=== PATIENT | female | born 1965 | race Caucasian/White ===

== ENCOUNTER → 2019-08-24 17:40 | Outpatient (CLI) | payer BC, SELFPAY ==
--- NOTE | ~2019-08-24 | MM_ITS ---
EXAMINATION: MM screening [facility] BI w yassine HISTORY: Screening mammogram TECHNIQUE: Craniocaudal and mediolateral oblique 3-D tomosynthesis images were obtained and synthetic 2-D images were generated. CAD analysis was submitted and interpreted. COMPARISON: No prior mammogram is available for comparison at this institution. BREAST PARENCHYMAL COMPOSITION: There are scattered areas of fibroglandular density. FINDINGS: Degenerative occasional bilateral low-density circumscribed masses, likely due to benign in tramammary lymph nodes. There is no evidence of suspicious mass, calcification, or architectural dist ortion to suggest malignancy in either breast. There has been no suspicious interval change. IMPRESSION: 1. No mammographic evidence of malignancy. 2. Recommend routine screening mammography in one year. BI-RADS Category 2: Benign finding(s). Reviewed, dictated and finalized at location A.
== END ==
PROVIDERS: PCP Physician Assistant; Visit Provider Physician Assistant
DX: Z12.31 Encounter for screening mammogram for malignant neoplasm of breast (principal)
CPT/HCPCS: 77063; 77067

== ENCOUNTER → 2020-09-28 17:18 | Outpatient (CLI) | payer BC, SELFPAY ==
--- NOTE | ~2020-09-28 | MM_ITS ---
EXAMINATION: MM screening [facility] BI w yassine HISTORY: Screening TECHNIQUE: Craniocaudal and mediolateral oblique 3-D tomosynthesis images were obtained and synthetic 2-D images were generated. CAD analysis was submitted and interpreted. COMPARISON: Comparison to multiple prior studies sequentially, with oldest reviewed study dated 12/2010. BREAST PARENCHYMAL COMPOSITION: There are scattered areas of fibroglandular density. FINDINGS: There is no evidence of suspicious mass, calcification, or architectural distortion to sugg est malignancy in either breast. There has been no suspicious interval change. IMPRESSION: 1. No mammographic evidence of malignancy. 2. Recommend routine screening mammography in one year. BI-RADS Category 1: Negative Reviewed, dictated and finalized at location A.
== END ==
PROVIDERS: Visit Provider Physician Assistant
DX: Z12.31 Encounter for screening mammogram for malignant neoplasm of breast (principal)
CPT/HCPCS: 77063; 77067

== ENCOUNTER → 2021-10-11 16:11 | Outpatient (CLI) | payer BC, SELFPAY ==
--- NOTE | ~2021-10-11 | XR_ITS ---
EXAMINATION: XR knee RT 2V DATE: 10/11/2021 16:30 INDICATION: Right knee pain TECHNIQUE: Two views of the right knee were obtained. COMPARISON: None. FINDINGS: Alignment is normal. No fracture or osteochondral lesion. There is tricompartmental osteoar thritis characterized by moderate narrowing in the medial and patellofemoral compartments and margina l osteophytes. No joint effusion/synovitis. Soft tissues are unremarkable. IMPRESSION: 1. No acute osseous abnormality. Reviewed, dictated and finalized at location F.
== END ==
PROVIDERS: PCP Physician Assistant; Visit Provider Physician Assistant
DX: M25.561 Pain in right knee (principal)
CPT/HCPCS: 73560

== ENCOUNTER → 2021-12-08 16:07 | Outpatient (CLI) | payer BC, SELFPAY ==
--- NOTE | ~2021-12-08 | MM_ITS ---
EXAMINATION: MM screening [facility] BI w yassine HISTORY: Screening mammogram TECHNIQUE: Craniocaudal and mediolateral oblique 3-D tomosynthesis images were obtained and synthetic 2-D images were generated. CAD analysis was submitted and interpreted. COMPARISON: 09/28/2020, 08/24/2019, 07/15/2018 bilateral screening mammogram examinations BREAST PARENCHYMAL COMPOSITION: There are scattered areas of fibroglandular density. FINDINGS: Scattered bilateral stable benign-appearing low-density circumscribed opacities, mostly lik ethan benign intramammary lymph nodes and/or cysts. There is no evidence of suspicious mass, calcificat ion, or architectural distortion to suggest malignancy in either breast. There has been no suspicious interval change. IMPRESSION: 1. No mammographic evidence of malignancy. 2. Recommend routine screening mammography in one year. BI-RADS Category 2: Benign finding(s). Reviewed, dictated and finalized at location A.
== END ==
PROVIDERS: PCP Family Medicine; Visit Provider Family Medicine
DX: Z12.31 Encounter for screening mammogram for malignant neoplasm of breast (principal)
CPT/HCPCS: 77063; 77067

== ENCOUNTER 2022-12-06 13:58 | Outpatient (CLI) | payer BC, SELFPAY ==
--- NOTE | ~2022-12-06 | US_ITS ---
EXAMINATION: US venous doppler LE RT DATE: 12/06/2022 15:14 INDICATION: Right lower limb swelling. Deep venous thrombosis. TECHNIQUE: Grayscale ultrasound images without and with compression and Doppler ultrasound images of the right lower extremity veins were obtained. COMPARISON: None. FINDINGS: The visualized portions of right common femoral vein, profunda (deep) femoral vein, femoral vein, pop liteal vein, peroneal trunk, posterior tibial veins, peroneal veins, gastrocnemius vein and greater s aphenous vein outflow are patent. IMPRESSION: 1. No deep venous thrombosis in the right lower limb. Reviewed, dictated and finalized at location A.
--- NOTE | ~2022-12-06 | US_ITS ---
EXAMINATION: US venous doppler UE RT DATE: 12/06/2022 15:14 INDICATION: Acute embolism and thrombosis of the deep veins TECHNIQUE: Grayscale images without and with compression and Doppler images of the bilateral upper ex tremity veins were obtained. COMPARISON: None. FINDINGS: The right internal jugular vein, subclavian vein, axillary vein, brachial vein, basilic vein, cephali c vein, radial vein, and ulnar vein are patent. IMPRESSION: 1. Patent right upper extremity veins. No evidence of venous thrombosis. Reviewed, dictated and finalized at location A.
== END 2022-12-06 13:59 | disposition home or self-care (01) ==
PROVIDERS: PCP Family Medicine; Visit Provider Physician Assistant
DX: I82.409 Acute embolism and thrombosis of unspecified deep veins of unspecified lower extremity (principal); I82.629 Acute embolism and thrombosis of deep veins of unspecified upper extremity
CPT/HCPCS: 93971

== ENCOUNTER 2023-05-23 13:26 | Observation (INO) | payer OTHER, SELFPAY ==
--- NOTE | ~2023-05-23 | XR_ITS ---
EXAMINATION: XR chest 1V DATE: 05/23/2023 17:32 INDICATION: Confusion. Recent COVID-19. TECHNIQUE: A single frontal view of the chest was obtained. COMPARISON: Chest single view 04/02/2016 FINDINGS: There is no pneumonia, pleural effusion, or pneumothorax. The heart size is normal. IMPRESSION: 1. No acute cardiopulmonary disease. Reviewed, dictated and finalized at location E. [employer] TRI[employer] DATA COORDINATOR
--- NOTE | ~2023-05-23 | MR_ITS ---
EXAMINATION: MR brain/brain stem wo/w con DATE: 05/24/2023 09:23 INDICATION: Worsening right lower extremity weakness. TECHNIQUE: Magnetic resonance imaging (MRI) of the brain and brainstem was performed without and with 16 mL MultiHance intravenous contrast. COMPARISON: Head CT 05/23/2023 FINDINGS: There is no acute ischemic infarct. There is chronic encephalomalacia with old blood produc ts involving the left basal ganglia, left internal capsule, left thalamus, and left subinsular white matter. There is chronic Wallerian degeneration in the left corticospinal tracts in the brainstem. Th ere are scattered areas of nonspecific increased T2-weighted signal intensity in the cerebral white m atter. There is no abnormal mass lesion. There is mild ex vacuo dilatation of left lateral ventricle. The paranasal sinuses are clear. The orbits are normal. The mastoid air cells are normal. IMPRESSION: 1. Chronic encephalomalacia with old blood products involving the left basal ganglia, left internal c apsule, left thalamus, and left subinsular white matter. 2. Moderate nonspecific cerebral white matter disease, which likely represents chronic small vessel i schemic disease. Reviewed, dictated and finalized at location A. D STACKER IMPRESSION: 1. Chronic encephalomalacia with old blood products involving the left basal ga nglia, left internal capsule, left thalamus, and left subinsular white matter. 2. Moderate nonspecific cerebral white matter disease, which likely represents chronic small vessel ischemic disease.
--- NOTE | ~2023-05-23 | CT_ITS ---
CT ANGIOGRAM NECK AND HEAD History: Confusion. Technique: Axial noncontrast imaging of the brain was performed. Serial spiral axial images through t he head and neck were then obtained during arterial phase IV injection of 100 cc of Omnipaque 350. 3- D postprocessing and MIP images were then reconstructed on the remote workstation. Dose reduction adia hnique was used on this scan by utilizing automated exposure control and iterative reconstruction adia hnique. The dose-length product (DLP) was 1626.25 mGy-cm. CTA neck findings: Bilateral vertebral arteries are patent. Bowel, carotid, internal carotid, and ex ternal carotid arteries are patent. No large vessel occlusion. No stenosis or aneurysm. The proximal right internal carotid artery demonstrates 0% stenosis relative to the normal distal artery lumen omar meter. The proximal left internal carotid artery demonstrates 0% stenosis relative to the normal dist al artery lumen diameter. CTA head findings: Distal vertebral arteries, basilar artery, and posterior cerebral arteries are pat ent. Distal internal carotid arteries, middle cerebral arteries, and anterior cerebral arteries are p atent. No large vessel occlusion. No stenosis or aneurysm. Axial noncontrast imaging of the brain demonstrates probable chronic infarct in the left periventricu lar white matter in left basal ganglia. No acute infarct, intracranial hemorrhage, or mass lesion joyce ntified. Ventricles and subarachnoid spaces are minimally prominent. There are mild chronic microvasc ular ischemic changes with associated hypodensity in the periventricular white matter. No midline joanne ft. Paranasal sinuses and mastoid air cells are clear. Impression: No vascular abnormality evident. Chronic infarct in the left periventricular white matter/left basal ganglia. Mild generalized atrophy and mild chronic microvascular ischemic changes. Reviewed, dictated and finalized at location . ER PRODUCTION LINE GAS Impression: No vascular abnormality evident. Chronic infarct in the left periventricular white matter/left basal ganglia. Mild generalized atrophy and mild chronic microvascular ischemic changes.
[2023-05-23 13:29] VITALS: BP 132/72; PULSE 64; RESP 18; TEMP 36.6; O2SAT 96
[2023-05-23 16:17] VITALS: BP 127/69; PULSE 52; RESP 18; O2SAT 99
--- NOTE | 2023-05-23 17:08 | ECG_ITS ---
Measurements Intervals [place] Rate: 53 P: 39 CT: 153 QRS: 48 QRSD: 78 T: 48 QT: 433 QTc: 410 Interpretive Statements SINUS BRADYCARDIA LOW QRS VOLTAGE IN PRECORDIAL LEADS [QRS DEFLECTION < 1.0 mV IN CHEST LEADS] NO PREVIOUS ECG AVAILABLE FOR COMPARISON Electronically Signed On 05-23-2023 19:20:18 [employer] TE[employer] by Ana Kendall M.D.
--- NOTE | 2023-05-23 17:10 | ED.GENADULT ---
HPI - General Adult General Chief complaint: Neuro Symptoms/Deficit <Tevin Palafox MD - Last Filed: 05/24/23 18:32> Stated complaint: slurred speech, swollen r light leg <Tevin Palafox MD - Last Filed: 05/24/23 18:32> Time Seen by Provider: 05/23/23 17:06 <Tevin Palafox MD - Last Filed: 05/24/23 18:32> History of Present Illness HPI narrative: 57-year-old female presenting to the emergency department for evaluation of increased weakness of her right lower extremity. Patient had a stroke approximately 6 months ago and was treated at [place]. Patient does have residual right-sided deficit From that stroke 6 months ago. Patient does have some language deficit which her son states is unchanged from her new baseline. Patient has significant right arm weakness which she states is unchanged. Patient does feel that her right lower extremity is weaker than normal. Son states that the patient's range of motion is not far from her normal baseline. Patient did have COVID approximately 2 weeks ago. Patient denies any other illnesses or fevers. Patient denies any falls or injury. <Tevin Palafox MD - Last Filed: 05/24/23 18:32> 57-year-old female presenting emergency department for evaluation of increased weakness of her right lower extremity. Patient had a stroke approximately 6 months ago and was treated at [place]. Patient does have residual right-sided deficit From that stroke 6 months ago. Patient does have some language deficit which her son states is unchanged from her new baseline. Patient has significant right arm weakness which she states is unchanged. Patient does feel that her right lower extremity is weaker than normal. Son states that the patient's range of motion is not far from her normal baseline. Patient did have COVID approximately 2 weeks ago. Patient denies any other illnesses or fevers. Patient denies any falls or injury. <Argentina Chavis PA-C - Last Filed: 05/23/23 23:27> Related Data Home medications: Home Medications Medication Instructions Recorded Confirmed sennosides 8.6 mg-docusate sodium 1 tab-cap PO QHS PRN Constipation 11/08/22 05/24/23 50 mg tablet (Stimulant Laxative Plus) acetaminophen 650 mg tablet 650 mg PO Q6H PRN Pain (Scale 05/24/23 05/24/23 Score 1-3) baclofen 10 mg tablet 10 mg PO TID 05/24/23 05/24/23 baclofen 5 mg tablet 5 mg PO TID 05/24/23 05/24/23 melatonin 3 mg PO HS PRN Insomnia 05/24/23 05/24/23 <Tevin Palafox MD - Last Filed: 05/24/23 18:32> Allergies/adverse reactions: Allergies Allergy/AdvReac Type Severity Reaction Status Date / Time No Known Allergies Allergy Unverified 11/30/22 10:49 <Tevin Palafox MD - Last Filed: 05/24/23 18:32> Review of Systems Review of Systems: All systems reviewed & are unremarkable except as noted in HPI and below <Tevin Palafox MD - Last Filed: 05/24/23 18:32> PMFSH Past Medical History Medical History: Medical History Essential (primary) hypertension Hemiparesis affecting right side as late effect of cerebrovascular accident Major depressive disorder, single episode, moderate <Tevin Palafox MD - Last Filed: 05/24/23 18:32> Surgical History Surgical History: Surgical History History of cholecystectomy 1992 History of partial hysterectomy 2007 <Tevin Palafox MD - Last Filed: 05/24/23 18:32> Family History Family History: Family History Mother Brain aneurysm COPD (chronic obstructive pulmonary disease) Father Liver transplant recipient <Tevin Palafox MD - Last Filed: 05/24/23 18:32> Social History Social History: Social History (Updated 11/08/22 @ 10:28 by Michaela Sellers MA) Smoking status: Former smoker Alcohol intake: never Substance us
[2023-05-23 17:42] LABS: Basophils Percent Auto 0.4 % (0.2-1.2); Eosinophils Absolute Auto 0.2 K/mm3 (0-0.3); Eosinophils Percent Auto 2.2 % (0-4.4); Hematocrit 41.9 % (37.0-47.0); Hemoglobin 13.5 g/dL (12.0-15.0); Immature Granulocyte Absolute 0.03 K/mm3 (0.00-0.031); Immature Granulocyte Percent A 0.4 % (0-0.5); Lymphocytes Absolute Auto 1.72 K/mm3 (0.9-3.2); Lymphocytes Percent Auto 24.1 % (18.3-44.2); Mean Corpuscular HGB Conc 32.2 g/dl (32-36); Mean Corpuscular Hemoglobin 29.2 pg (26-34); Mean Corpuscular Volume 90.5 fl (80-100); Mean Platelet Volume 11.2 fl (7.4-10.4); Monocytes Absolute Auto 0.5 K/mm3 (0.1-0.6); Monocytes Percent Auto 7.4 % (2.6-8.5); Neutrophils Absolute Auto 4.7 K/mm3 (1.3-6.7); Neutrophils Percent Auto 65.5 % (45.5-73.1); Platelet Count Result 224 k/mm3 (150-375); Red Blood Count 4.63 M/mm3 (4.2-5.4); White Blood Count 7.1 K/mm3 (4.5-10.0)
[2023-05-23 17:45] LABS: Alanine Aminotransferase 18 U/L (6-35); Albumin Level 4.3 g/dL (3.5-5.1); Alkaline Phosphatase 143 U/L (38-126); Anion Gap 11 mmol/L (8-16); Aspartate Amino Transferase 24 U/L (14-36); Bilirubin,Total 0.6 mg/dL (0.2-1.3); Blood Urea Nitrogen 20 mg/dL (7-17); Calcium 9.3 mg/dL (8.4-10.2); Carbon Dioxide 19 mmol/L (22-30); Chloride 109 mmol/L (98-107); Estimated CRCL calculation 54 ml/min; Estimated Glomerular Filt Rate 57; Glucose 101 mg/dL (65-110); Potassium 4.1 mmol/L (3.4-5.0); Sodium 139 mmol/L (137-145)
[2023-05-23 18:54] LABS: Prothrombin Time 13.4 Seconds (11.1-14.7)
[2023-05-23 18:55] LABS: Partial Thromboplastin Time 32.8 SECONDS (22.3-36.8)
[2023-05-23 19:02] VITALS: BP 136/69; PULSE 53; RESP 22; O2SAT 96
--- NOTE | 2023-05-23 19:08 | PC.NURSE ---
Assumed care of pt from BRITANY Jolley at this time.
[2023-05-23 19:19] LABS: Influenza A QL RT-PCR Negative (Negative); Influenza B QL RT-PCR Negative (Negative); RSV RNA, RT-PCR Negative (Negative); SARS-CoV-2 RNA PCR Positive (Negative)
--- NOTE | 2023-05-23 20:04 | PC.NURSE ---
This RN attempted to get urine sample from pt to go forward w admission. Pt refused straight cath and stated she will attempted going on toilet shortly. Hat for sample placed at bedside.
[2023-05-23 20:54] LABS: Appearance Urine Clear (Clear); Bacteria Urine Rare /hpf; Bilirubin Urine Negative (Negative); Blood Urine Negative (Negative); Color Urine Yellow (Yellow); Glucose Urine UA Negative (Negative); Ketones Urine Negative (Negative); Leukocyte Esterase Ur Negative LEU/UL (Negative); Nitrate Urine Negative (Negative); Non Pathogenic Casts 0-2; Protein Urine Trace mg/dL (Negative); RBC Urine 0-2 /hpf (0-2); Squamous Epithelial Cell Urine Occasional /hpf (Few)
[2023-05-23 20:58] LABS: Specific Grav Ur 1.052 (1.001-1.035)
[2023-05-23 20:59] LABS: Add Urine Microscopic? YES
[2023-05-23 21:47] VITALS: BP 106/55; PULSE 56; RESP 22; O2SAT 95
--- NOTE | 2023-05-23 23:20 | PM.IMHP ---
H&P: HPI History of Present Illness Date/Time: 05/23/23 23:20 Chief Complaint: weakness Narrative: This is a 57-year-old female with past medical history significant for stroke, hypertension, right hemiparesis. Patient was brought to the emergency due to changes to her right side rob body being weaker than usual. Patient remembers being in her usual the night before going to bed. Can not really remember details can not really give much history that is meaningful. CT ANGIOGRAM NECK AND HEAD History: Confusion. Technique: Axial noncontrast imaging of the brain was performed. Serial spiral axial images through the head and neck were then obtained during arterial phase IV injection of 100 cc of Omnipaque 350. 3-D postprocessing and MIP images were then reconstructed on the remote workstation. Dose reduction technique was used on this scan by utilizing automated exposure control and iterative reconstruction technique. The dose-length product (DLP) was 1626.25 mGy-cm. CTA neck findings:? Bilateral vertebral arteries are patent. Bowel, carotid, internal carotid, and external carotid arteries are patent. No large vessel occlusion. No stenosis or aneurysm. The proximal right internal carotid artery demonstrates 0% stenosis relative to the normal distal artery lumen diameter. The proximal left internal carotid artery demonstrates 0% stenosis relative to the normal distal artery lumen diameter. CTA head findings: Distal vertebral arteries, basilar artery, and posterior cerebral arteries are patent. Distal internal carotid arteries, middle cerebral arteries, and anterior cerebral arteries are patent. No large vessel occlusion. No stenosis or aneurysm. Axial noncontrast imaging of the brain demonstrates probable chronic infarct in the left periventricular white matter in left basal ganglia. No acute infarct, intracranial hemorrhage, or mass lesion identified. Ventricles and subarachnoid spaces are minimally prominent. There are mild chronic microvascular ischemic changes with associated hypodensity in the periventricular white matter. No midline shift. Paranasal sinuses and mastoid air cells are clear. Impression: No vascular abnormality evident. Chronic infarct in the left periventricular white matter/left basal ganglia. Mild generalized atrophy and mild chronic microvascular ischemic changes. EXAMINATION: XR chest 1V DATE: 05/23/2023 17:32 INDICATION: Confusion. Recent COVID-19. TECHNIQUE: A single frontal view of the chest was obtained. COMPARISON: Chest single view 04/02/2016 FINDINGS: There is no pneumonia, pleural effusion, or pneumothorax. The heart size is normal. IMPRESSION: 1. No acute cardiopulmonary disease. Review of Systems Review of Systems: ROS unobtainable: Yes unobtainable due to mental status PMFSH Past Medical History Medical History Essential (primary) hypertension Hemiparesis affecting right side as late effect of cerebrovascular accident Major depressive disorder, single episode, moderate Surgical History Surgical History History of cholecystectomy 1992 History of partial hysterectomy 2007 Family History Family History Mother Brain aneurysm COPD (chronic obstructive pulmonary disease) Father Liver transplant recipient Social History Social History (Updated 11/08/22 @ 10:28 by Michaela Sellers MA) Smoking status: Former smoker Alcohol intake: never Substance use: never Substance use type: does not use Lack of Transportation: No Lack of Food: Never True Current Housing: I Have Housing Concerned About Future Housing: No Difficulty Paying Gas/Electric Bills: No Difficulty Paying for Meds: No Currently Unemployed: No Education: Trade/Vocational Certificate Difficulty w/ Childcare or Family Care: No
[2023-05-24] VITALS (8 sets, daily range): BP systolic 107–123; BP diastolic 64–72; PULSE 52–63; RESP 14–18; TEMP 36.4–36.6; O2SAT 93–96; BMI 33.4; BMI 32.9
--- NOTE | 2023-05-24 00:43 | ADMGEN ---
This patient, Brigida Doan, was admitted to 2 Medical Room 241-01. Patient/family oriented to hospital policies and general routines including ID bracelet, bed and alarms, visiting hours, pain management, procedures, bathroom and other care routines, personal items, smoking policy, room service/diet, and visiting hours. Information on how to activate the Rapid Response Team has been discussed. Patient/Family are encouraged to report perceived risks to care and to ask questions if they do not understand what they are told or what they should do.
[2023-05-24] MEDS: BACLOFEN 10 MG TABLET PO ×3 (08:08→16:47)
[2023-05-24] MEDS: amLODIPine BESYLATE 5 MG TABLET PO (08:08)
[2023-05-24] MEDS: BACLOFEN 5 MG TABLET PO ×3 (08:08→16:47)
[2023-05-24] MEDS: ESCITALOPRAM OXALATE 10 MG TABLET PO (08:08)
[2023-05-24] MEDS: ENOXAPARIN 40 MG/0.4 ML SYRINGE SUB-Q (08:08)
[2023-05-24] MEDS: ACETAMINOPHEN 325 MG TABLET 650 MG PO (10:43)
--- NOTE | 2023-05-24 15:16 | PM.DS ---
DS: Admitting Diagnosis Discharge Date 05/24/23 Admitting Diagnosis Right-sided weakness DS: Discharge Diagnosis Discharge Diagnosis (1) RUE weakness: Code(s): R29.898 - Other symptoms and signs involving the musculoskeletal system Status: Acute (2) Essential (primary) hypertension: Code(s): I10 - Essential (primary) hypertension Status: Acute (3) Major depressive disorder, single episode, moderate: Code(s): F32.1 - Major depressive disorder, single episode, moderate Status: Acute (4) Hemiparesis affecting right side as late effect of cerebrovascular accident: Code(s): I69.351 - Hemiplegia and hemiparesis following cerebral infarction affecting right dominant side Status: Acute DS: Summary Hospital Course Hospital Course: 57-year-old with past medical history of stroke, hypertension and right sided hemiparesis that presented to the ED due to right side of her body feeling weird . When asking patient described that she just stated that her arms and legs felt off. I asked if she could move her right arm or right leg at all and she said no she cannot feel them when prompted about how they felt weird she said she did not know. She said that when she was in therapy she was unable to move her right leg although from what I gather this is her baseline. She states that she is no longer having the sensation. Neuro exam at baseline. She denies any visual changes, numbness and tingling in the upper lower extremities. No facial droop noted. No slurred speech. No difficulty swallowing. MRI ordered Time Spent with Patient Time attestation: Total time spent providing and/or coordinating discharge services: Exam Narrative: GENERAL: Comfortable, no acute distress HENMT: moist mucous membranes EYES: EOM intact b/l NECK: no lymphadenopathy RESPIRATORY: clear to auscultation CARDIO: RRR GI: soft, nontender, bowel sounds present SKIN: no rashes EXTREMITIES: no edema, redness or tenderness NEURO: Hemiparesis on right side, no facial droop, strength 5/5 on left upper and lower extremities, no slurred speech DS: Data Data Completed and Pending Labs on day of discharge: Labs from last 24 hours 05/23/23 05/23/23 05/23/23 20:45 18:33 17:27 WBC 7.1 RBC 4.63 Hgb 13.5 Hct 41.9 MCV 90.5 MCH 29.2 MCHC 32.2 RDW 14.0 Plt Count 224 MPV 11.2 H Immature Gran % (Auto) 0.4 Neut % (Auto) 65.5 Lymph % (Auto) 24.1 [place] % (Auto) 7.4 Eos % (Auto) 2.2 Baso % (Auto) 0.4 Lymph # (Auto) 1.72 [place] # (Auto) 0.5 Eos # (Auto) 0.2 Baso # (Auto) 0.0 Abs Immat Gran (auto) 0.03 Absolute Neuts (auto) 4.7 Absolute Nucleated RBC 0.0 Nucleated RBC % 0.0 PT 13.4 INR 1.0 APTT 32.8 Sodium 139 Potassium 4.1 Chloride 109 H Carbon Dioxide 19 L Anion Gap 11 BUN 20 H Creatinine 1.00 Estim Creat Clear Calc 54 Estimated GFR 57 L Glucose 101 Calcium 9.3 Total Bilirubin 0.6 AST 24 ALT 18 Alkaline Phosphatase 143 H Total Protein 8.0 Albumin 4.3 Urine Color Yellow Urine Appearance Clear Urine pH 6.0 Ur Specific [place] 1.052 H Urine Protein Trace Urine Glucose (UA) Negative Urine Ketones Negative Ur Blood (Man) Negative Urine Nitrate Negative Urine Bilirubin Negative Urine Urobilinogen 1.0 Leukocyte Esterase Rfl Negative Urine RBC 0-2 Urine WBC 6-10 H Ur Squamous Epith Cells Occasional Urine Bacteria Rare Urine Casts 0-2 Influenza A (RT-PCR) Negative Influenza B (RT-PCR) Negative RSV (RT-PCR) Negative SARS-CoV-2 RNA (RT-PCR) Positive A Discharge Plan Discharge Attending physician on discharge: Oscar Daniels Discharging Clinician: Aida Melendez Patient Disposition: NH [facility]/Asst Living Activity: as tolerated Diet: regular Discharge Instructions: DISCHARG
== END 2023-05-24 16:51 ==
LOC: ANHED 23:27 → ANH2MED 05-24 00:19
PROVIDERS: Emergency Medicine; Admitting Provider Internal Medicine; Emergency Provider Physician Assistant; PCP Family Medicine; Visit Provider Internal Medicine
DX: R29.898 Other symptoms and signs involving the musculoskeletal system (principal); I10 Essential (primary) hypertension; F32.1 Major depressive disorder, single episode, moderate; I69.351 Hemiplegia and hemiparesis following cerebral infarction affecting right dominant side; I69.328 Other speech and language deficits following cerebral infarction; G93.89 Other specified disorders of brain; R90.82 White matter disease, unspecified; U07.1 COVID-19; K59.00 Constipation, unspecified; G47.00 Insomnia, unspecified; F32.9 Major depressive disorder, single episode, unspecified; Z79.82 Long term (current) use of aspirin; Z79.899 Other long term (current) drug therapy; Z83.6 Family history of other diseases of the respiratory system
CPT/HCPCS: 36415; 70496; 70498; 70553; 71045; 80053; 81001; 85025; 85610; 85730; 87086; 87088; 87637; 93005; 96372; 99285; A9270; A9577; G0378; G0379; J1650; Q9967

== ENCOUNTER 2024-05-12 08:28 | Outpatient (CLI) | payer MEDICAID, SELFPAY ==
[2024-05-12 09:26] LABS: Cholesterol 172 mg/dL (0-200); HDL Direct 57 mg/dL; Triglycerides 92 mg/dL (<150)
[2024-05-12 09:37] LABS: LDL Cholesterol Direct 80 mg/dL
== END 2024-05-12 08:29 | disposition home or self-care (01) ==
PROVIDERS: PCP Family Medicine; Visit Provider Family Medicine
DX: I63.9 Cerebral infarction, unspecified (principal)
CPT/HCPCS: 36415; 80061

== ENCOUNTER 2024-07-23 15:00 | Emergency (ER) | payer SELFPAY ==
--- NOTE | 2024-07-23 15:01 | ED_ITS ---
HPI - Extremity Injury (Lower) General Chief Complaint: Extremity Injury, Lower Stated Complaint: RT Foot Pain Time Seen by Provider: 07/23/24 15:00 Source: patient Mode of arrival: ambulatory Limitations: no limitations History of Present Illness HPI Narrative: Patient is a 58-year-old female that presents with redness and swelling to right great toe. Patient states she noticed it after cutting toenails over a week ago. Patient has been soaking foot and using hydrogen peroxide. Denies any drainage from toe. Patient has neuropathy and residual right-sided weakness/decreased sensation from CVA. Related Data Home Medications ?Medication ?Instructions ?Recorded ?Confirmed ?Last Taken ?Type escitalopram oxalate 10 mg tablet 10 mg PO DAILY 05/19/24 05/19/24 Unknown History Allergies Allergy/AdvReac Type Severity Reaction Status Date / Time No Known Allergies Allergy Verified 07/23/24 15:10 Review of Systems 2 Review of Systems: All systems reviewed & are unremarkable except as noted in HPI and below Constitutional: Constitutional: Denies body ache(s), Denies chills, Denies fatigue, Denies fever(s), Denies headache(s), Denies malaise and Denies weakness Eyes: Eyes: Denies blurry vision, Denies irritation and Denies loss of vision ENT: Denies otalgia, Denies headache(s), Denies nasal discharge, Denies sinus pain and Denies sore throat Cardiovascular: Cardiovascular: Denies chest pain, Denies irregular heart rhythm and Denies dyspnea Respiratory: Respiratory: Denies dyspnea Gastrointestinal: Gastrointestinal: Denies abdominal pain, Denies melena, Denies hematochezia, Denies diarrhea, Denies nausea and Denies vomiting Musculoskeletal: Musculoskeletal: Denies back pain, Denies myalgias and Denies arthralgias Integumentary/Breasts: Skin/Breast: Denies pruritus, Reports erythema, Denies rash and Reports skin swelling Neurologic: Denies headache(s), Denies loss of vision and Denies weakness Psychiatric: Psychiatric: Reports no additional psychiatric complaints Endocrine: Endocrine: Denies fatigue PMFSH Past Medical History Medical History Major depressive disorder, single episode, moderate Essential (primary) hypertension Hemiparesis affecting right side as late effect of cerebrovascular accident Surgical History Surgical History History of partial hysterectomy 2008 History of cholecystectomy 1992 Family History Family History Mother Brain aneurysm COPD (chronic obstructive pulmonary disease) Father Liver transplant recipient Social History Social History Smoking status: Former smoker Alcohol intake: never Substance use: never Substance use type: does not use Do You Feel Safe in your Home?: Yes Lack of Transportation: No Lack of Food: Never True Current Housing: I Have Housing Concerned About Future Housing: No Difficulty Paying Gas/Electric Bills: No Difficulty Paying for Meds: No Currently Unemployed: No Education: Trade/Vocational Certificate Difficulty w/ Childcare or Family Care: No Living arrangements: with family Occupation/Education: retired Gender identity (if verbalized by the patient): Female Sexual Orientation (if Verbalized by the Patient): Straight or Heterosexual Spiritual care concerns: No Comments At time of signature, agree with nursing past medical, surgical, social and family history. There is no relevant family history pertinent to the presenting complaint. Exam 2 Const: General: cooperative, healthy appearing, comfortable, no acute distress and well nourished Nutritional Appearance: well nourished O rientation/consciousness: patient oriented x3 Limitations: no limitations HENMT: Head: normal to inspection, normocephalic and atraumatic Ears: h earing grossly normal bilaterally and external ears normal Face/Nose/Sinus: N ormal external nose present, normal facial exam and face symmetric Face and sinus: normal facial exam and face symmetric Mouth: Yes lip normal Eyes: General: appearance normal, both eyes and all related structures A lignment and Position: alignment normal and position normal Periorbital: p eriorbital findings normal Eyelids: eyelids normal Pupils: Equal, round and reactive pupils present EOM: EOMs intact bilaterally Neck: Neck: normal visual inspection, full ROM and supple Chest: Chest palpation & inspection: normal inspection of the chest Resp: Effort & Inspection: normal respiratory effort and able to speak in complete sentences Auscultation: clear to auscultation bilaterally Cardio: Rate: regular rate Rhythm: regular rhythm Heart sounds: S1 normal heart sound present and S2 normal heart sound present GI: Inspection: normal to inspection Skin: General skin exam: normal color and no rashes or lesions noted Neuro: General: patient oriented x3 and moves all extremities Cranial nerves: Yes Equal, round and reactive pupils present Speech: normal speech Gait exam (Neuro): Normal gait present Extrem: General: normal to inspection, full ROM and no edema Right lower extremity: foot Details: normal capillary refill, toes with normal ROM, no edema and vascular exam Details: dorsalis pedis pulse present and normal capillary refill; no tenderness Ankle/foot/toe images: 1. Area of erythema and warmth. Induration present but no fluctuation. No active drainage Psych: Appearance: grossly normal and well kempt Mental Status: mental status grossly normal Speech and movement: Normal speech and movement present Affect: normal affect Attitude: cooperative Thought process: Normal thought process present Course Course Emergency Course: Patient is aware of diagnosis, understands and agrees to treatment plan. Anticipatory guidance given. Patient agrees to follow-up as directed and is aware of reasons to seek care at the emergency department. Portions of this record may have been created with voice recognition software Level of Care: Express Care Visit Vital Signs Vital signs: Reviewed MDM - Extremity Injury (Lower) MDM Narrative Medical decision making narrative: Pt well hydrated appearing, in no respiratory distress, hemodynamically stable. Recommend supportive care. The patient is stable at time of discharge the clinical impression was discussed and the patient was given the opportunity to ask questions, which were addressed as completely as possible given the information available at present. Anticipatory guidance and return to care precautions were discussed and the importance of primary care follow-up was stressed and encouraged. The patient voiced understanding of the plan, indications to return, and the need for follow-up. Exam findings show no acute concerns or changes Patient is appropriate for outpatient treatment and follow-up. Differential Diagnosis Differential diagnosis: Likely other (Paronychia, cellulitis, ingrown toenail, toe fracture) Medical Records Attestation: I reviewed the patient's medical records. Discharge Plan Discharge Clinical Impression: Paronychia Cellulitis Qualifiers: Site of cellulitis: extremity Site of cellulitis of extremity: toe Laterality: right Qualified Code(s): L03.031 - Cellulitis of right toe Patient Disposition: Home, Self-Care Condition: Stable Instructions: Betty (ED) Additional Instructions: Please follow up with your Primary Care Doctor within 48-72 hours - call for an appointment. Rest and elevate affected area; soak foot in warm water and Epson salt once or twice a day. Take Motrin 600mg every 8 hours with food for pain. Please take Antibiotics as directed. If you experience any worsening redness, swelling, streaking (red lines), fever or chills please go to the ER Patient Language: Armenian Prescriptions: New cephalexin 500 mg capsule 500 mg PO QID 7 Days Qty: 28 0RF mupirocin 2 % ointment 1 applic topical BID Qty: 15 0RF No Action escitalopram oxalate 10 mg tablet 10 mg PO DAILY baclofen 10 mg tablet See Rx Instructions .ROUTE .COMPLEX Qty: 270 1RF Dose Instruction: TAKE 1 TABLET BY MOUTH THREE TIMES DAILY Rx Instructions: TAKE 1 TABLET BY MOUTH THREE TIMES DAILY amlodipine 5 mg tablet 5 mg PO DAILY Qty: 90 1RF baclofen 5 mg tablet 5 mg PO TID 30 Days Qty: 90 5RF Follow-up/Referrals: Vern Gamboa MD [Primary Care Provider] - 3 Days Time of Disposition: 15:19
[2024-07-23 15:09] VITALS: BP 129/69; PULSE 60; RESP 18; TEMP 36.7; O2SAT 97
--- OUTSIDE RECORDS SUMMARY | 2024-07-23 15:14 | XMS_ITS | Clinical Summary ---
Author Organization [facility] Virtual Care Address [address] [place] [id number] Phone Care Team Providers Care Market Reporter Name Role Phone Unknown, Notinfile Primary Care Provider Unavail able Allergies No known active allergies Medications amLODIPine (NORVASC) 10 mg tablet Take 1 tablet (10 mg total) by mouth daily 30 tablet 11 09/28/2022 Active heparin 5,000 unit/mL injectionIndicat ions:Deep Vein Thrombosis Prevention Inject 1 mL (5,000 Units total) under the skin every 8 (eight) hours 09/27/2022 Active nicotine (NICODERM CQ) [address] 1 patch on the skin daily for 7 doses 7 patch 09/29/2022 Active Active Problems Problem Noted Date Diagnosed Date Hemorrhagic stroke (CMS/HCC) 09/13/2022 Immunizations Name Administration Dates Next Due Pfizer SARS-CoV-2 Monovalent Vaccination (12+ Yrs) MARC-READY TO USE 02/06/2022 Social History Tobacco Use Types Packs/Day Years Used Date Smoking Tobacco: Every Day Cigarettes 1.5 15 Tobacco Cessation:Ready to Q uit: Not Asked; Counseling Given: Not Answered Personal Safety Answer Date Recorded Have you ever been in or are you currently in a harmful physical or emotional relationship or is someone making you feel afraid or unsafe? Unable to Answer 09/13/2022 Comments No Sex and Gender Information Value Date Recorded Sex Assigned at Not on file Legal Sex Female 12:04 PM CDT Gender Identity Female 09/28/2022 9:34 AM CDT Sexual Orientation Not on file Obstetrics History Last Filed Vital Signs Vital Sign Reading Time Taken Comments Blood Pressure 116/82 09/27/2022 11:36 AM CDT Pulse 62 09/27/2022 11:36 AM CDT Temperature 36.8 C (98.2 F) 09/27/2022 11:36 AM CDT Respiratory Rate 18 09/27/2022 11:36 AM CDT Oxygen Saturation 100% 09/27/2022 11:36 AM CDT Inhaled Oxygen Concentration - - Weight 90.7 kg (200 lb) 09/25/2022 7:00 PM CDT Height 160 cm (5' 3 ) 09/13/2022 11:35 PM CDT Body Mass Index 35.43 09/13/2022 11:35 PM CDT Plan of Treatment Health Maintenance Due Date Last Done Comments Breast Cancer Screening-Mammogram 1965 Cervical Cancer Screening 1965 Colon Cancer Screening-Colonoscopy 1965 Depression Screening 1965 Hepatitis C Screening 1965 Pneumococcal vaccine <65 (1 of 2 - PCV) 12/05/1971 Hepatitis B Screening 12/05/1983 Regular Well Visit/Exam 18-64 12/05/1983 Zoster Vaccine (1 of 2) 12/05/2015 Covid-19 Vaccine (5 - 2023-2 5 season) 2024 02/06/2022, 04/27/2021, 08/20/2020, Additional history exists Influenza Vaccine (#1) 2024 , 03/16/2020, 03/25/2019 DTaP/Tdap/Td Vaccine (2 - Td or Tdap) 04/20/2024 04/20/2014 Insurance [employer] Advance Directives For more information, please contact: [phone] * Full Code (Latest Code Status on File) Date Activated Date Inactivated Comments 09/13/2022 11:32 PM 09/27/2022 8:01 PM Care Teams Market Reporter Relationship Specialty Start Date End Date Unknown, Notinfile PCP - General 09/13/22
--- OUTSIDE RECORDS SUMMARY | 2024-07-23 15:14 | XMS_ITS | Referral Summary ---
Author Organization [facility] Virtual Care Address [address] [place] [phone] Phone Care Team Providers Care Syrup Shed Supervisor Name Role Phone Unknown, Notinfile Primary Care [...] AM CDT Sexual Orientation Not on file Last Filed Vital Signs Vital Sign Reading [...] 09/13/2022 11:35 PM CDT Plan of Treatment Not on file Insurance [employer] Advance Directives For more information, please contact: [phone] * Full Code (Latest Code Status on File) Date Activated Date Inactivated Comments 09/13/2022 11:32 PM 09/27/2022 8:01 PM Care Teams Syrup Shed Supervisor Relationship Specialty Start Date End Date Unknown, Notinfile PCP - General 09/13/22
== END 2024-07-23 15:22 | disposition home or self-care (01) ==
PROVIDERS: Emergency Provider Nurse Practitioner Family; PCP Family Medicine
DX: L03.031 Cellulitis of right toe (principal); I10 Essential (primary) hypertension; I69.351 Hemiplegia and hemiparesis following cerebral infarction affecting right dominant side; Z87.891 Personal history of nicotine dependence
CPT/HCPCS: 99213; G0463